=== PATIENT | female | born 1985 | race American Indian/Alaskan Native ===

== ENCOUNTER 2017-07-27 08:45 | Inpatient (IN) | payer OTHER ==
[2017-07-27] MEDS ORDERED: Midazolam 2 MG/2 ML VIAL ONE (09:36)
[2017-07-27] MEDS ORDERED: Lidocaine Hydrochloride 5 ML INJ ONE (09:36)
[2017-07-27] MEDS ORDERED: Propofol 10 mg/ml Inj (20 ML) ONE (09:36)
[2017-07-27] MEDS ORDERED: Lactated Ringer's 1,000 ML IV ONE ×6 (09:37→15:40)
[2017-07-27] MEDS ORDERED: Bupivacaine-Epi 0.25%-1:200,000 PF Inj ONE (09:41)
[2017-07-27] MEDS ORDERED: ceFAZolin IV 2 gm in Dextrose 1 GM/50 ML BAG IVPB ONE ×2 (09:42→15:41)
[2017-07-27] MEDS ORDERED: Vasopressin 20 Units/ml Inj ONE (09:42)
[2017-07-27] MEDS ORDERED: Rocuronium 10 mg/ml (5 ml) ONE (10:56)
[2017-07-27] MEDS ORDERED: Sodium Chloride 0.9% 20 ML IV ONE (11:02)
[2017-07-27] MEDS ORDERED: Morphine 4 MG/ML VIAL IV PRN (15:36)
[2017-07-27] MEDS ORDERED: Sodium Chloride 0.9% 1,000 ML IV SCH ×2 (15:45→18:15)
[2017-07-27] MEDS ORDERED: Morphine 4 MG/ML VIAL ONE ×2 (15:49→16:12)
[2017-07-27] MEDS ORDERED: Neostigmine Methylsulfate 3mg/3ml Syringe IV ONE (16:05)
[2017-07-27] MEDS ORDERED: Clindamycin 2% Vaginal Cream(40 gm) ONE (16:12)
--- NOTE | 2017-07-27 16:29 | PCM.SURG1 ---
Surgeon's Initial Post Op Note - Surgeon's Notes Surgeon: Earl Burton MD Blood And Plasma Laboratory Assistant: MADDISON Ivory DO PGY Type of Anesthesia: General Endo, Local Pre-Operative Diagnosis: massive fibroid uterus. abnormal uterine bleeding. chronic pelvic pain. infertility. urinary incontinance Operative Findings: massive size uterus approx 22 weeks size. bulky uterus multiple intramural and submocusal fibroids. normal bladder anatomy Post-Operative Diagnosis: massive fibroid uterus. abnormal uterine bleeding. chronic pelvic pain. infertility. urinary incontinance Operation Performed: Robotic assited myomectomy >10 myomas and >1500g. Exploration of ureters. diagnostic cystoscopy Specimen/Specimens Removed: myomas Estimated Blood Loss: EBL {In ML}: 550 Blood Products Given: N/A Drains Used: No Drains Post-Op Condition: Good Date of Surgery/Procedure: 07/27/17 Time of Surgery/Procedure: 16:30
--- NOTE | 2017-07-27 16:35 | PCM.OP ---
Operative Report - Operative Report Date of Surgery/Procedure: 07/27/17 Time of Surgery/Procedure: 16:30 Surgeon: Loli Burton MD Bass Singer: MADDISON Ivory PGY2 Anesthesia/Sedation: General with ET tube Pre-Operative Diagnosis: Enlarge fibroid uterus. Chronic pelvic pain. Abnormal uterine bleeding. Urinary incontinence. Urinary urgency. Chronic anemia Post-Operative Diagnosis: Enlarge fibroid uterus. Stage 4 Endometriosis. Deep tissue endometriosis. Chronic pelvic pain. Abnormal uterine bleeding. Urinary incontinence. Urinary urgency. Chronic anemia Indication for Surgery: worsening symptoms due to this massive 22 weeks size uterus, including. chronic pelvic pain and abnormal uterine bleeding as wsell as bothersome urinary dysfunction Operative Findings: massive size bulky fibroid uterus 22 weeks. pelvic anatomy distorted due to enlarged uterus, myomatous uterus extended from pelvic side wall to the contralateral. close proximity to uretes. exploration of ureters completed to assess ureters as dissection of myomas in very close proximity. ureters and bladder anatomy normal as per cystoscopy , ureters efluxing urine freely. Procedure/Operation Description: Robotic myomectomy >10 myomas, >1500 g. Excision of deep tissue endometriosis. Ablation of endometriosis. Exploration of ureters. Laparotomy to extract massive fibroids. diagnostic cystosocpy. * Note: Extreme difficult surgical procedure due to severely distorted pelvic anatomyecondary to endometriosis stage IV, as well as massively enlarged fibroid uterus with myomas extending from one lateral wall to another. This procedure required much extended operative time to complete. . Detailed Operative Report. This is a 31 years old female with an enlarged fibroid uterus, associated abnormal uterine bleeding and chronic pelvic pain, chronic anemia and urinary dysfunction as well as history of infertility. She reported this enlarged fibroid uterus with associated symptoms as debilitating and affecting her quality of life severely. Following complete workup at the office which included an ultrasound as well as Pap smear a decision was made to proceeds with a robotic assisted myomectomy. A decision was made to proceed with a robotic myomectomy and uterine reconstruction to preserve possible future fertility. After proper consent was obtained from the patient was taken to the operating room where general anesthesia was obtained without difficulty. She was placed in dorsal lithotomy position her legs were placed in adjustable Lam stirrups. Careful attention was placed not to over-flex or over-rotate the lower extremities at the hip or the knee joints. She was prepped and draped appropriately for robotic assisted myomectomy. Guerrero catheter was inserted under sterile conditions. A standard size V-care uterine manipulator was inserted through the cervix and secured. A local anesthetic solution of quarter percent Marcaine was utilized to infiltrate the skin prior to any skin incision. A total of 15 mL of 0.25% Marcaine was utilized throughout the procedure. While tenting the abdominal wall a Veress needle was inserted through the umbilicus while retracting the uterine fundus laterally and pneumoperitoneum was obtained. A small supra- umbilical 1 cm incision was made with a scalpel approximately 8 cm superior to the umbilicus and a trocar and sleeve were introduced. Robotic camera was inserted and initial survey of the patient's abdomen revealed massively enlarged fibroid uterus approximately 22 weeks size, extensive intra-abdominal intrapelvic peritoneal adhesions, Multiple loops of bowels were adherent to the fundal aspect of the uterus. Both right and left adnexa was severely distorted due to the bowel adhesions, involving both pelvic sidewalls because proximity to the ureters. In addition, extensive endometriosis was noted especially along the left pelvic sidewall consistent with deep tissue endometriosis adjacent to the left ureter. Multiple endometriosis lesions were noted all the way up to the pelvic brim. 3 robotic ports were utilized for this procedure. The first port was on the patient's right side approximately 8 cm above the right superior iliac crest. The second robotic port was inserted approximately 7 cm cephalic to the first port and approximately 7 cm lateral to the camera port. The third robotic port was in the patient's left side approximately 9 cm superior to the left superior iliac crest. An research assistant professor port was inserted about 8 cm left lateral to the camera ports. All robotic ports were approximately 8 mm in size; the research assistant professor was 1 cm in size. For the research assistant professor port, the Versastep trocars system was utilized. All trochars were inserted under direct visualization. The patient was placed in minimal Trendelenburg position due to the massively enlarged fibroid uterus approximately 22 weeks size, and the lateral side robotic docking was accomplished. The following instruments were utilized for this procedure: The PK sealing device was inserted on the left robotic port, monopolar yi as well as a Prograsp and robotic tenaculum were utilized on the right side robotic ports. Prior to the initiation of this procedure both ureters along their courses were visualized, peristalsing normally at the level of the pelvic brim. Following meticulous enterolysis, it was necessary to explore both ureters and their courses in order to avoid structural compromise to ureters. The peritoneum over pelvic sidewall was opened; the ureters were traced from the pelvic brim overlying the bifurcation of the iliac vessels and traced down towards the lower uterine segment bilaterally. The ureters were retracted laterally in order to safely lysed off adjacent bowel loops, peritoneal adhesions as well as complete the myomectomy. Diluted Pitressin solution 40 units in 100 mL of saline was utilized to inject the base of all myomas seen prior to incision. Meticulous and careful enterolysis as well as lysis of adhesions was completed in order to clear the posterior, anterior and fundal aspects of the uterus. In a careful and meticulous way, multiple loops of bowels as well as tight adhesions were freed off the uterus. Following the injection of Pitressin solution into the base as well as the myomas capsule, a large elliptical incision was made with a monopolar yi over the large cluster of the myomas from an anterior approach. Sharp and blunt dissections was utilized to excise the large complex of myomas. Careful attention was placed to avoid entry into the endometrial cavity. In a meticulous and careful fashion the large myomas were enucleated to be extracted at the end of the procedure from the patient's abdomen. The large uterine defect was closed in multiple sutures utilizing 2-0 Vlock suture material in a continuous fashion closing the space. Multiple layers of closure were necessary to close the large space utilizing the same suture material. Finally the serosa was closed in a baseball-like stitch with excellent hemostasis. In a similar fashion, a posterior large elliptical incision was made, extending upward towards the fundus of the uterus and a large cluster of large myomas were enucleated utilizing sharp and blunt dissection. This cluster of myomas were extracted from the posterior approach including fundal myomas which were intramural. This incision included a large cluster of myomas both intramural and submucosal. 2-0 VLOC suture material was utilized in multiple layers posterior space as well as the myometrium layer and finally the serosa was closed in a continuous baseball-like stitch and excellent hemostasis. Lastly, following the excision of more than 10 myomas both anterior and posterior approach, and following the reconstruction of this uterus with excellent hemostasis, attention was then turned to be excision of endometriosis including the deep tissue endometriosis along the left pelvic sidewall. Meticulous and careful excision of endometriosis was carried throughout the pelvic cavity utilizing blunt and sharp dissection. Excision of deep tissue endometriosis was utilizing monopolar yi in close proximity to the left ureter. The excision of this deep tissue endometriosis was accomplished following the exploration of the ureter on that side making sure, to retract ureter medially and away from the excision site. This excision of deep tissue endometriosis was sent to pathology labeled appropriately. FloSeal's as well as Interceed were applied to all incisions. Excellent hemostasis was noted throughout. Due to the massive size of this myomatous uterus, and a fairly narrow introitus, a decision was made to proceed with a small Pfannenstiel incision to extract all the specimen, more than 10 large myomas varying sizes for pathology. The abdomen was throughout irrigated and cleared of all clots and debris. All instruments removed under direct visualization and robotic arms were undocked and removed. A Pfannenstiel incision was made with a scalpel and carried down to level of the rectus fascia. The fascia was opened the midline inserted incision was extended. The rectus muscles were then in the midline and incision was extended. The peritoneal cavity was entered sharply and incision was extended. The cluster of myomas were identified and extracted through the Pfannenstiel incision and sent to pathology for permanent analysis. The abdomen was throughout irrigated once again and cleared of all clots and debris. FloSeal and Interceed were applied over the incision sites. The peritoneum was closed with 2-0 chromic in a continuous fashion. The fascia was closed with 0 Vicryl in a continuous fashion. Skin was closed with 4-0 Monocryl in subcutaneous fashion. Pressure dressing was applied to the incision. All skin incisions were closed with skin maribel and Steri-Strips. Dermabond was applied to all incisions. The research assistant professor port was closed in a fascial layer utilizing 2- 0 Vicryl in an interrupted fashion. Due to the very close proximity to both ureters and the massive size of this fibroids as well as the distorted pelvic anatomy, a diagnostic cystoscopy was necessary to ascertain bladder and ureters. The Guerrero catheter was removed the bladder was distended with approximately 300 mL of normal saline. A 30 cystoscope was inserted and a survey of the bladder gatica as well as ureteral orifices indicated effluxing ureters bilaterally, no compromise was noted to the bladder wall, the trigone as well as the urethra were normal appearing. Prior to incision patient received prophylactic antibiotics, prior to closure sponge lap and needle counts are correct x2. Patient tolerated the procedure well and was taken to recovery room in stable condition. Estimated Blood Loss: 550 Blood Replaced: no Sponge/Instrument Count: ssponge lap and needle counts were correct x2 Drains: none Complications: none Specimen: myomas more than 10. deep tissue endometrioma Discharge & Condition: patient was discharged home in stable condition
[2017-07-27] MEDS: HYDROmorphone 0.5 mg/0.5 ml ISec IVP PRN ×2 (17:04→17:18)
[2017-07-27 17:18] LABS: HEMATOCRIT 26.2 % (34.0-47.0); MEAN CELL VOLUME 70.7 fL (81.0-99.0); MEAN CORPUSCULAR HEMOGLOBIN 21.1 pg (27.0-31.0); MEAN CORPUSCULAR HGB CONC 29.8 g/dL (33.0-37.0); MEAN PLATELET VOLUME 7.9 fL (7.2-11.7); RED CELL DISTRIBUTION WIDTH 21.5 % (11.5-14.5); WHITE BLOOD COUNT 17.1 K/uL (4.8-10.8)
[2017-07-27] MEDS ORDERED: Sodium Chloride 0.9% 1,000 ML IV ONE (18:11)
[2017-07-27] MEDS ORDERED: Bacitracin Ointment 30 GM TUBE TOP ONE (18:40)
[2017-07-27] MEDS ORDERED: Ferric Sodium Gluconat Complex 62.5 mg/5 ml Vial IVPB ONE (21:00)
[2017-07-27 21:49] LABS: BASO % 0.1 % (0.0-2.0); HEMATOCRIT 27.6 % (34.0-47.0); LYMPH # 0.4 K/uL (1.0-4.3); LYMPH % 2.8 % (20.0-40.0); MEAN CELL VOLUME 70.1 fL (81.0-99.0); MEAN CORPUSCULAR HEMOGLOBIN 21.4 pg (27.0-31.0); MEAN CORPUSCULAR HGB CONC 30.5 g/dL (33.0-37.0); MEAN PLATELET VOLUME 8.2 fL (7.2-11.7); MONO # 0.9 K/uL (0.0-0.8); PLATELET COUNT 245 K/uL (130-400); WHITE BLOOD COUNT 14.9 K/uL (4.8-10.8)
[2017-07-27] MEDS: Oxycodone/Acetaminophen 5/325 mg Tab PO PRN (22:38)
[2017-07-27 23:07] LABS: NEUTROPHIL 88 % (50-75); TOTAL CELLS COUNTED 100
[2017-07-27 23:08] LABS: LARGE PLATELETS PRESENT; SMUDGE CELLS PRESENT
[2017-07-27] MEDS: ceFAZolin IV 1 gm in Dextrose 1 GM/50 ML BAG IVPB SCH (23:23)
[2017-07-28] MEDS: Oxycodone/Acetaminophen 5/325 mg Tab PO PRN ×4 (05:58→22:04)
--- NOTE | 2017-07-28 07:28 | CP.PCM.PN ---
Subjective - Date & Time of Evaluation Date of Evaluation: 07/28/17 Time of Evaluation: 07:25 - Subjective Subjective: Surgery Pt s&e. Pt underwent surgery. Tolerated it well. Denies F/C/N/V/D/CP/SOB. C/O pain. Guerrero removed. + void. Tolerating diet. Objective - Vital Signs/Intake and Output Vital Signs (last 24 hours): Temp Pulse Resp BP Pulse Ox 98.7 F 75 20 113/72 99 07/28/17 00:00 07/28/17 00:00 07/28/17 00:00 07/28/17 00:00 07/28/17 00:00 - Medications Medications: Current Medications Ferric Sodium Gluconate Complex (Ferrlecit) 125 mg IVPB ONCE ONE Stop: 07/28/17 11:01 Hydromorphone HCl (Dilaudid) 0.5 mg IVP Q4H PRN PRN Reason: Pain, moderate (4-7) Cefazolin Sodium/Dextrose (Ancef Iv 1 Gm Duplex) 1 gm in 50 mls @ 100 mls/hr IVPB Q8H [facility] Stop: 07/28/17 08:14 Last Admin: 07/27/17 23:23 Dose: 100 mls/hr Sodium Chloride (Sodium Chloride 0.9%) 1,000 mls @ 80 mls/hr IV .[id number] [facility] Sodium Chloride (Sodium Chloride 0.9%) 1,000 mls @ 125 mls/hr IV .Q8H [facility] Morphine Sulfate (Morphine) 4 mg IV Q4H PRN PRN Reason: Pain, moderate (4-7) Ondansetron HCl (Zofran Inj) 4 mg IVP Q6H PRN PRN Reason: Nausea/Vomiting Oxycodone/Acetaminophen (Percocet 5/325 Mg Tab) 2 tab PO Q4 PRN PRN Reason: Pain, Mild (1-3) Stop: 07/30/17 15:37 Last Admin: 07/28/17 05:58 Dose: 2 tab - Labs Labs: 07/27/17 21:06 - Constitutional Appears: Non-toxic - Head Exam Head Exam: ATRAUMATIC, NORMAL INSPECTION, NORMOCEPHALIC - Eye Exam Eye Exam: EOMI, Normal appearance, PERRL Pupil Exam: NORMAL ACCOMODATION, PERRL - ENT Exam ENT Exam: Mucous Membranes Moist, Normal Exam - Neck Exam Neck Exam: Full ROM, Normal Inspection. absent: Lymphadenopathy - Respiratory Exam Respiratory Exam: Clear to Ausculation Bilateral, NORMAL BREATHING PATTERN - Cardiovascular Exam Cardiovascular Exam: REGULAR RHYTHM, +S1, +S2. absent: Murmur - GI/Abdominal Exam GI & Abdominal Exam: Soft, Tenderness. absent: Distended, Firm, Guarding, Rigid , Mass, Rebound Additional comments: INcision C/D/i.TTP. - Extremities Exam Extremities Exam: Full ROM, Normal Inspection - Back Exam Back Exam: NORMAL INSPECTION - Neurological Exam Neurological Exam: Alert, Awake, CN II-XII Intact, Normal Gait, Oriented x3 - Psychiatric Exam Psychiatric exam: Normal Affect, Normal Mood - Skin Skin Exam: Dry, Intact, Normal Color, Warm. absent: Erythema Assessment and Plan - Assessment and Plan (Free Text) Assessment: POD 1 s/p Robotic Myomectomy -Pain control -Nausea control -Reg diet -Monitor labs Will DW Dr. Burton
--- NOTE | 2017-07-28 07:58 | CP.PCM.PN ---
Subjective - Date & Time of Evaluation Date of Evaluation: 07/28/17 Time of Evaluation: 07:56 - Subjective Subjective: Patient complaining of severe pain. She says the pain medication isn't controlling her pain. She was able to tolerate soup last night. Denies nausea/ vomiting/CP/SOB. Patient voided this am. Objective - Vital Signs/Intake and Output Vital Signs (last 24 hours): Temp Pulse Resp BP Pulse Ox 98.7 F 75 20 113/72 99 07/28/17 00:00 07/28/17 00:00 07/28/17 00:00 07/28/17 00:00 07/28/17 00:00 - Medications Medications: Current Medications Ferric Sodium Gluconate Complex (Ferrlecit) 125 mg IVPB ONCE ONE Stop: 07/28/17 11:01 Hydromorphone HCl (Dilaudid) 0.5 mg IVP Q4H PRN PRN Reason: Pain, moderate (4-7) Cefazolin Sodium/Dextrose (Ancef Iv 1 Gm Duplex) 1 gm in 50 mls @ 100 mls/hr IVPB Q8H [facility] Stop: 07/28/17 08:14 Last Admin: 07/27/17 23:23 Dose: 100 mls/hr Sodium Chloride (Sodium Chloride 0.9%) 1,000 mls @ 125 mls/hr IV .Q8H [facility] Stop: 07/28/17 18:14 Ondansetron HCl (Zofran Inj) 4 mg IVP Q6H PRN PRN Reason: Nausea/Vomiting Oxycodone/Acetaminophen (Percocet 5/325 Mg Tab) 2 tab PO Q4 PRN PRN Reason: Pain, Mild (1-3) Stop: 07/30/17 15:37 Last Admin: 07/28/17 05:58 Dose: 2 tab - Labs Labs: 07/27/17 21:06 - Respiratory Exam Respiratory Exam: NORMAL BREATHING PATTERN - GI/Abdominal Exam GI & Abdominal Exam: Distended, Soft, Tenderness Additional comments: Incisions intact, dry, no erythema patient out of bed in chair Assessment and Plan (1) Fibroid uterus Assessment & Plan: POD#1 s/p robotic assisted myomectomy, exploration of ureters and diagnostic cysto -pain medication adjusted -encourage OOB/IS -awaiting am labs -plan d/c home when pain is controlled -d/w Dr. Burton, agrees with above [place] [employer] patient report reviewed, no CDS. Patient counseled on the risks of addiction, physical or psychological dependence, and overdose associated with opioid drugs and the danger of taking opioid drugs with alcohol and other central nervous system depressants, and cautioned patient on storage and disposal. Status: Chronic (2) Abnormal uterine bleeding Status: Chronic (3) Chronic pelvic pain in female Status: Chronic (4) Infertility Status: Chronic (5) Urinary incontinence Status: Chronic
[2017-07-28 08:43] LABS: HEMATOCRIT 25.7 % (34.0-47.0); MEAN CORPUSCULAR HEMOGLOBIN 21.4 pg (27.0-31.0); MEAN PLATELET VOLUME 8.1 fL (7.2-11.7); RED CELL DISTRIBUTION WIDTH 21.6 % (11.5-14.5); WHITE BLOOD COUNT 11.2 K/uL (4.8-10.8)
[2017-07-28 08:52] LABS: CHLORIDE 107 mmol/L (98-107); POTASSIUM 3.7 mmol/L (3.6-5.2); SODIUM 138 mmol/L (132-148)
[2017-07-28 08:55] LABS: BLOOD UREA NITROGEN 5 mg/dL (7-17); CARBON DIOXIDE 23 mmol/L (22-30); GFR AFRICAN-AMERICAN > 60; GLUCOSE,RANDOM 96 mg/dL (65-105)
[2017-07-28 08:56] LABS: CALCIUM 7.8 mg/dl (8.6-10.4)
[2017-07-28] MEDS: ceFAZolin IV 1 gm in Dextrose 1 GM/50 ML BAG IVPB SCH (09:07)
[2017-07-28] MEDS: Multiple Vitamins Tab PO SCH (09:15)
[2017-07-28] MEDS ORDERED: Oxycodone/Acetaminophen 5/325 mg Tab ONE (09:58)
[2017-07-28] MEDS ORDERED: Ferric Sodium Gluconat Complex 62.5 mg/5 ml Vial IVPB ONE ×2 (11:00→21:00)
[2017-07-28] MEDS ORDERED: Bacitracin 500 Units/gm Oint Foilpak UD TOP ONE (13:45)
[2017-07-28] MEDS: Calcium-Vit D 500 mg-200 Units Tab UD PO SCH (16:19)
[2017-07-29] MEDS: Oxycodone/Acetaminophen 5/325 mg Tab PO PRN ×4 (03:04→19:12)
[2017-07-29 08:14] LABS: HEMATOCRIT 21.8 % (34.0-47.0); MEAN CELL VOLUME 70.2 fL (81.0-99.0); MEAN CORPUSCULAR HEMOGLOBIN 22.1 pg (27.0-31.0); MEAN CORPUSCULAR HGB CONC 31.5 g/dL (33.0-37.0); MEAN PLATELET VOLUME 7.8 fL (7.2-11.7); RED CELL DISTRIBUTION WIDTH 21.6 % (11.5-14.5); WHITE BLOOD COUNT 8.2 K/uL (4.8-10.8)
[2017-07-29] MEDS: Calcium-Vit D 500 mg-200 Units Tab UD PO SCH (09:50)
[2017-07-29] MEDS: Multiple Vitamins Tab PO SCH (09:50)
--- NOTE | 2017-07-29 18:38 | CP.PCM.PN ---
Subjective - Date & Time of Evaluation Date of Evaluation: 07/29/17 Time of Evaluation: 07:00 - Subjective Subjective: GYNECOLOGY SURGERY PROGRESS NOTE FOR DR. WHITESIDE Patient seen and examined at bedside. She reports having a lot of pain but she is ambulating, eating, talking with visitors. She is tolerating her diet and denies nausea or vomiting. Denies vaginal bleeding. She reports being OOB to chair for hours yesterday. She has been ambulating in her room. She is voiding freely but has not had a BM yet since surgery. Objective - Vital Signs/Intake and Output Vital Signs (last 24 hours): Temp Pulse Resp BP Pulse Ox 98.2 F 85 20 109/70 98 07/29/17 16:00 07/29/17 16:00 07/29/17 16:00 07/29/17 16:00 07/29/17 16:00 - Medications Medications: Current Medications Calcium/Vitamin D (Oyster Shell Calcium/Vitamin D 500 Mg-200 Iu) 1 tab PO DAILY [facility] Last Admin: 07/29/17 09:50 Dose: 1 tab Hydromorphone HCl (Dilaudid) 0.5 mg IVP Q4H PRN PRN Reason: Pain, moderate (4-7) Multivitamins (Hexavitamin) 1 tab PO DAILY [facility] Last Admin: 07/29/17 09:50 Dose: 1 tab Ondansetron HCl (Zofran Inj) 4 mg IVP Q6H PRN PRN Reason: Nausea/Vomiting Oxycodone/Acetaminophen (Percocet 5/325 Mg Tab) 2 tab PO Q4 PRN PRN Reason: Pain, Mild (1-3) Stop: 07/30/17 15:37 Last Admin: 07/29/17 15:15 Dose: 2 tab - Labs Labs: 07/29/17 08:02 07/28/17 08:39 - Constitutional Appears: Well, Non-toxic, No Acute Distress - Head Exam Head Exam: ATRAUMATIC, NORMAL INSPECTION - Respiratory Exam Respiratory Exam: NORMAL BREATHING PATTERN. absent: Respiratory Distress - Cardiovascular Exam Cardiovascular Exam: +S1, +S2 - GI/Abdominal Exam GI & Abdominal Exam: Soft. absent: Distended, Firm, Guarding, Rigid, Tenderness , Rebound Additional comments: Dermabond over incision sites - Neurological Exam Neurological Exam: Alert, Awake, Oriented x3 - Psychiatric Exam Psychiatric exam: Normal Affect, Normal Mood - Skin Skin Exam: Dry, Normal Color, Warm Assessment and Plan - Assessment and Plan (Free Text) Assessment: 31yo F s/p Robotic myomectomy POD#2 - Afebrile, VSS - Hgb dropped to 6.9 from 8.0 yesterday - Will transfuse 2 PRBC - Will recheck H&H after transfusions - Heme onc Dr. Frost consulted for anemia workup - Discussed plan with Dr. Micheal Hunt PGY-3
[2017-07-30] MEDS: Oxycodone/Acetaminophen 5/325 mg Tab PO PRN ×3 (01:10→12:19)
[2017-07-30 01:26] VITALS: RESP 18
[2017-07-30 05:29] LABS: BASO % 0.4 % (0.0-2.0); EOS % 0.5 % (0.0-4.0); HEMATOCRIT 30.5 % (34.0-47.0); LYMPH # 1.5 K/uL (1.0-4.3); LYMPH % 14.6 % (20.0-40.0); MEAN CORPUSCULAR HEMOGLOBIN 23.8 pg (27.0-31.0); MEAN CORPUSCULAR HGB CONC 32.4 g/dL (33.0-37.0); MEAN PLATELET VOLUME 7.9 fL (7.2-11.7); MONO % 10.4 % (0.0-10.0); NRBC % 0.1 % (0.0-2.0); RED CELL DISTRIBUTION WIDTH 21.9 % (11.5-14.5)
[2017-07-30 05:33] LABS: MEAN CELL VOLUME 73.5 fL (81.0-99.0)
--- NOTE | 2017-07-30 08:18 | CP.PCM.DIS ---
Provider - Provider Date of Admission: 07/27/17 11:42 Attending physician: Earl Burton MD Time Spent in preparation of Discharge (in minutes): 25 Hospital Course - Lab Results Lab Results: Most Recent Lab Values WBC 10.0 K/uL (4.8-10.8) 07/30/17 05:26 RBC 4.14 Mil/uL (3.80-5.20) 07/30/17 05:26 Hgb 9.9 g/dL (11.0-16.0) L D 07/30/17 05:26 Hct 30.5 % (34.0-47.0) L 07/30/17 05:26 MCV 73.5 fL (81.0-99.0) L D 07/30/17 05:26 MCH 23.8 pg (27.0-31.0) L 07/30/17 05:26 MCHC 32.4 g/dL (33.0-37.0) L 07/30/17 05:26 RDW 21.9 % (11.5-14.5) H 07/30/17 05:26 Plt Count 233 K/uL (130-400) 07/30/17 05:26 MPV 7.9 fL (7.2-11.7) 07/30/17 05:26 Neut % (Auto) 74.1 % (50.0-75.0) 07/30/17 05:26 Lymph % (Auto) 14.6 % (20.0-40.0) L 07/30/17 05:26 [place] % (Auto) 10.4 % (0.0-10.0) H 07/30/17 05:26 Eos % (Auto) 0.5 % (0.0-4.0) 07/30/17 05:26 Baso % (Auto) 0.4 % (0.0-2.0) 07/30/17 05:26 Neut # 7.4 K/uL (1.8-7.0) H 07/30/17 05:26 Lymph # 1.5 K/uL (1.0-4.3) 07/30/17 05:26 [place] # 1.0 K/uL (0.0-0.8) H 07/30/17 05:26 Eos # 0.0 K/uL (0.0-0.7) 07/30/17 05:26 Baso # 0.0 K/uL (0.0-0.2) 07/30/17 05:26 Neutrophils % (Manual) 88 % (50-75) H 07/27/17 21:06 Band Neutrophils % 4 % (0-2) H 07/27/17 21:06 Lymphocytes % (Manual) 2 % (20-40) L 07/27/17 21:06 Monocytes % (Manual) 6 % (0-10) 07/27/17 21:06 Hypersegmented Polys Present 07/27/17 21:06 Smudge Cells Present 07/27/17 21:06 Toxic Granulation Present 07/27/17 21:06 Platelet Estimate Normal (NORMAL) 07/27/17 21:06 Large Platelets Present 07/27/17 21:06 Hypochromasia (manual) Slight 07/27/17 21:06 Anisocytosis (manual) Slight 07/27/17 21:06 Microcytosis (manual) Slight 07/27/17 21:06 Macrocytosis (manual) Slight 07/27/17 21:06 Sodium 138 mmol/L (132-148) 07/28/17 08:39 Potassium 3.7 mmol/L (3.6-5.2) 07/28/17 08:39 Chloride 107 mmol/L (98-107) 07/28/17 08:39 Carbon Dioxide 23 mmol/L (22-30) 07/28/17 08:39 Anion Gap 12 (10-20) 07/28/17 08:39 BUN 5 mg/dL (7-17) L 07/28/17 08:39 Creatinine 0.7 MG/DL (0.7-1.2) 07/28/17 08:39 Est GFR ( Amer) > 60 07/28/17 08:39 Est GFR (Non-Af Amer) > 60 07/28/17 08:39 Random Glucose 96 mg/dL (65-105) 07/28/17 08:39 Calcium 7.8 mg/dl (8.6-10.4) L 07/28/17 08:39 Blood Type B POSITIVE 07/27/17 09:44 Blood Type Confirm B POSITIVE 07/27/17 09:44 Antibody Screen Negative 07/27/17 09:44 - Hospital Course Hospital Course: 31 y/o F presented to [facility] on 07/27 for robotic myomectomy. Pt tolerated the procedure well though bleeding was encountered. Pt was admitted for observation and to monitor Hgb. Pt received 2 units pRBC overnight. Hgb responded appropriately. Pt S&E @bedside this AM. Pt admits to some vaginal overnight. pain is controlled. Pt denies N/V. tolerating regular diet. Pt is cleared for discharge w/ instructions to see Dr. Burton in office tomorrow. Pt is instructed to follow up with a perforator operator as an outpatient for acute on chronic anemia. Discharge Exam - Head Exam Head Exam: ATRAUMATIC, NORMAL INSPECTION - Eye Exam Eye Exam: Normal appearance - ENT Exam ENT Exam: Mucous Membranes Moist - Respiratory Exam Respiratory Exam: NORMAL BREATHING PATTERN. absent: Accessory Muscle Use, Respiratory Distress - Cardiovascular Exam Cardiovascular Exam: REGULAR RHYTHM. absent: Bradycardia, Tachycardia - GI/Abdominal Exam GI & Abdominal Exam: Distended (minimal), Soft, Tenderness (TTP kassi-incisional) . absent: Guarding, Rebound - Exam Speculum exam: Vaginal Bleeding - Extremities Exam Extremities exam: normal inspection - Neurological Exam Neurological exam: Alert, Oriented x3 - Psychiatric Exam Psychiatric exam: Normal Affect, Normal Mood - Skin Skin Exam: Dry, Intact, Normal Color, Warm Discharge Plan - Discharge Medications Prescriptions: oxyCODONE/Acetaminophen [Percocet 5/325 mg Tab] 2 tab PO Q4 PRN #40 tab PRN Reason: Pain, Moderate (4-7) - Follow Up Plan Condition: GOOD Disposition: HOME/ ROUTINE Patient education suggested?: Yes Instructions: Iron Rich Diet (DC), Wound Healing and Your Diet (DC), Myomectomy (DC), Anemia (DC), Care For Your Absorbable Stitches (DC) Additional Instructions: See Dr. Burton in office tomorrow, 07/30/[address] Burton for appointment or if any issues over night. cell: [phone] Will schedule Hematomoly follow up at office vist
[2017-07-30 08:33] VITALS: BP 127/84; PULSE 76; TEMP 98.3; O2SAT 98
--- NOTE | 2017-07-30 11:07 | CP.PCM.CON ---
History of Present Illness - History of Present Illness History of Present Illness: Hematology Consult Referred for anemia HPI- Ms Weller is 31 y/o F who was admitted for myomectomy. She has h/o uterine fibroids and has h/o heavy menstrual periods with chronic iron def anemia. She has taken oral iron supplements in past but could not tolerated due to side effects. She underwent robotic myomectomy on 07/27/17 and >10 fibromas were removed. Her Hb was 7.8 on admission and dropped to 6.9 post op. She received 2 units PRBC yesterday and her Hb improved to 9.9 today. She feels little better though still tired. Denies bleeding. Abdominal pain is controlled. Denies chest pain or SOB. She is scheduled for discharge today. Family and Social history reviewed Review of Systems - Constitutional Constitutional: Fatigue. absent: Chills, Fever - EENT Eyes: absent: Blind Spots, Blurred Vision, Change in Vision Ears: absent: Decreased Hearing, Ear Discharge, Ear Pain Nose/Mouth/Throat: absent: Epistaxis, Nasal Congestion, Nasal Discharge - Cardiovascular Cardiovascular: absent: Chest Pain, Dyspnea, Leg Edema - Respiratory Respiratory: absent: Cough, Dyspnea, Hemoptysis - Gastrointestinal Gastrointestinal: Abdominal Pain. absent: Bloating, Constipation, Vomiting - Genitourinary Genitourinary: absent: Change in Urinary Stream, Difficulty Urinating Past Patient History - Past Medical History & Family History Past Medical History?: Yes - Past Social History Smoking Status: Never Smoked - RENAL Hx Kidney Stones: Yes - HEMATOLOGICAL/ONCOLOGICAL Hx Blood Disorders: Yes Hx Anemia: Yes - GENITOURINARY/GYNECOLOGICAL Hx Genitourinary Disorders: Yes (hpv abn menses) - SURGICAL HISTORY Hx Surgeries: No - ANESTHESIA Hx Anesthesia: No Has any member of the family had a problem w/ anesthesia?: No Meds Home Medications: Home Medication List Medication Instructions Recorded Confirmed Type oxyCODONE/Acetaminophen [Percocet 2 tab PO Q4 PRN #40 tab 07/30/17 Rx 5/325 mg Tab] Allergies/Adverse Reactions: Allergies Allergy/AdvReac Type Severity Reaction Status Date / Time No Known Allergies Allergy Verified 07/27/17 09:07 - Medications Medications: Current Medications Calcium/Vitamin D (Oyster Shell Calcium/Vitamin D 500 Mg-200 Iu) 1 tab PO DAILY HALEY Last Admin: 07/29/17 09:50 Dose: 1 tab Hydromorphone HCl (Dilaudid) 0.5 mg IVP Q4H PRN PRN Reason: Pain, moderate (4-7) Multivitamins (Hexavitamin) 1 tab PO DAILY HALEY Last Admin: 07/29/17 09:50 Dose: 1 tab Ondansetron HCl (Zofran Inj) 4 mg IVP Q6H PRN PRN Reason: Nausea/Vomiting Oxycodone/Acetaminophen (Percocet 5/325 Mg Tab) 2 tab PO Q4 PRN PRN Reason: Pain, Mild (1-3) Stop: 07/30/17 15:37 Last Admin: 07/30/17 07:31 Dose: 2 tab Physical Exam - Head Exam Head Exam: ATRAUMATIC, NORMAL INSPECTION - Eye Exam Eye Exam: EOMI, PERRL - ENT Exam ENT Exam: Mucous Membranes Moist - Neck Exam Neck exam: Negative for: Lymphadenopathy - Respiratory Exam Respiratory Exam: Clear to Auscultation Bilateral - Cardiovascular Exam Cardiovascular Exam: REGULAR RHYTHM - GI/Abdominal Exam GI & Abdominal Exam: Normal Bowel Sounds, Soft. absent: Organomegaly - Extremities Exam Extremities exam: Negative for: pedal edema - Neurological Exam Neurological exam: Alert, Oriented x3 Results - Vital Signs Recent Vital Signs: Last Vital Signs Temp 98.3 F 07/30/17 08:00 Pulse 76 07/30/17 08:00 Resp 18 07/30/17 08:00 BP 127/84 07/30/17 08:00 Pulse Ox 98 07/30/17 08:00 - Labs Result Diagrams: 07/30/17 05:26 07/28/17 08:39 Labs: Laboratory Results - last 24 hr 07/27/17 07/30/17 09:44 05:26 WBC 10.0 RBC 4.14 Hgb 9.9 L D Hct 30.5 L MCV 73.5 L D MCH 23.8 L MCHC 32.4 L RDW 21.9 H Plt Count 233 MPV 7.9 Neut % (Auto) 74.1 Lymph % (Auto) 14.6 L Hooker % (Auto) 10.4 H Eos % (Auto) 0.5 Baso % (Auto) 0.4 Neut # 7.4 H Lymph # 1.5 Hooker # 1.0 H Eos # 0.0 Baso # 0.0 Blood Type B POSITIVE Blood Type Confirm B POSITIVE Antibody Screen Negative Assessment & Plan - Assessment and Plan (Free Text) Assessment: Microcytic anemia, likely secondary to iron deficiency due to chronic menstrual blood loss and exacerbated by post op blood loss (around 550 ml) Her Hb is better after transfusion and she feels better. We discussed different alternatives to replace iron including oral or parenteral supplements. I recommended IV iron infusions to avoid side effects from oral iron. She was given information to schedule outpatient appointment with me this week for iron infusion. Will give her Venofer 200 mg IV for 4-5 doses. Her Hb and iron levels will be monitored. All her questions and concerns were answered Thank you for the consult José Miguel Velasco MD - Date & Time Date: 07/30/17 Time: 11:07
== END 2017-07-30 12:25 | disposition home or self-care (01) | DRG 743 ==
LOC: C.SDS 08:45 → C.4M 11:42
PROVIDERS: ADMIT Obstetrics & Gynecology; ATTEND Obstetrics & Gynecology
PROC: 0UB94ZZ Excision of Uterus, Percutaneous Endoscopic Approach (ICD-10-PCS; principal; 2017-07-27 10:45)
PROC: 8E0W4CZ Robotic Assisted Procedure of Trunk Region, Percutaneous Endoscopic Approach (ICD-10-PCS; 2017-07-27 10:45)
DX: D25.0 Submucous leiomyoma of uterus (principal); D25.1 Intramural leiomyoma of uterus; N80.0 Endometriosis of uterus; N93.8 Other specified abnormal uterine and vaginal bleeding; N97.9 Female infertility, unspecified; D53.9 Nutritional anemia, unspecified; N39.41 Urge incontinence; G89.29 Other chronic pain; R10.2 Pelvic and perineal pain